=== PATIENT | female | born 1970 | race Caucasian/White ===

== ENCOUNTER 2016-09-24 05:55 | Inpatient (IN) ==
[2016-09-21 17:11] LABS: Blood Urea Nitrogen 9 mg/dl (6-20)
[2016-09-21 17:14] LABS: Appearance,Urine CLOUDY; Bilirubin,Urine NEG (NEG); Color,Urine AMBER; Glucose,Urine (UA) NEGATIVE (NEG); Leukocyte Esterase,Urine NEG /uL (NEG); Nitrate,Urine NEG (NEG); Protein,Urine NEG (NEG); Specific Gravity,Urine 1.021 (1.000-1.035); Urine Blood NEG mg/dL (<0.03); Urobilinogen,Urine NEG (NEG)
[2016-09-21 17:17] LABS: Basophils # (Auto) 0 K/mcL (0.0-0.3); Basophils % (Auto) 0.4 % (0.0-2.0); Eosinophils # (Auto) 0.2 K/mcL (0.0-0.7); Eosinophils % (Auto) 1.9 % (0.0-7.0); Granulocytes % (Auto) 68.1 % (38.0-78.0); Lymphocytes # (Auto) 2.3 K/mcL (1.5-4.8); Lymphocytes % (Auto) 23.8 % (15.5-49.0); Mean Cell Volume 91.3 fL (80.0-100.0); Mean Corpuscular HGB Conc 33.9 g/dL (31.0-36.0); Mean Corpuscular Hemoglobin 30.9 pg (26.0-34.0); Monocytes # (Auto) 0.6 K/mcL (0.1-0.9); Monocytes % (Auto) 5.8 % (1.0-12.0); Platelet Count 392 K/mcL (140-440); RBC 4.56 M/mcL (4.00-5.20); Red Cell Distribution Width 12.5 % (11.5-14.5)
[2016-09-21 17:24] LABS: HCG,Serum NEGATIVE <10.0 mIU/Ml (<10)
[2016-09-24] MEDS ORDERED: CLINDAMYCIN 900 MG in DEXTROSE 5% IN WATER 50 ML IV SCH (08:30)
[2016-09-24] MEDS ORDERED: ONDANSETRON 4 MG/2 ML VIAL IV ONE (08:55)
[2016-09-24] MEDS ORDERED: SUCCINYLCHOLINE 20 MG/ML ML IV ONE (08:55)
[2016-09-24] MEDS ORDERED: DEXAMETHASONE 10 MG/ML VIAL IV ONE (08:55)
[2016-09-24] MEDS ORDERED: ROPIVACAINE HCL/PF 30 ML VIAL IJ ONE (08:55)
[2016-09-24] MEDS ORDERED: PROPOFOL 200 MG/20 ML VIAL IV ONE (08:55)
[2016-09-24] MEDS ORDERED: LIDOCAINE HCL/PF 100 MG/5 ML SYRINGE IV ONE (08:55)
[2016-09-24] MEDS ORDERED: MIDAZOLAM 5 MG/5 ML VIAL IV ONE (08:55)
[2016-09-24] MEDS ORDERED: TRANEXAMIC ACID 1,000 MG/10 ML VIAL IV ONE ×2 (08:55→12:10)
[2016-09-24] MEDS ORDERED: METOPROLOL TARTRATE 5 MG/5 ML VIAL IV ONE (08:55)
[2016-09-24] MEDS ORDERED: PHENYLEPHRINE 10 MG/ML VIAL IV ONE (08:55)
[2016-09-24] MEDS ORDERED: fentaNYL 250 MCG/5 ML VIAL IV ONE (08:55)
[2016-09-24] MEDS ORDERED: ePHEDrine 50 MG/ML AMPUL IV ONE (08:55)
[2016-09-24] MEDS ORDERED: GENTAMICIN SULFATE 800 MG/20 ML VIAL IR ONE (10:03)
[2016-09-24] MEDS ORDERED: METOPROLOL TARTRATE 5 MG/5 ML VIAL IV PRN (11:12)
[2016-09-24] MEDS ORDERED: ePHEDrine 50 MG/ML AMPUL IV PRN (11:12)
[2016-09-24] MEDS ORDERED: diphenhydrAMINE 50 MG/ML VIAL IV PRN ×3 (11:12→18:15)
[2016-09-24] MEDS ORDERED: PROMETHAZINE 25 MG/ML VIAL IM PRN (11:12)
[2016-09-24] MEDS ORDERED: ONDANSETRON 4 MG/2 ML VIAL IV PRN ×2 (11:12→12:10)
[2016-09-24] MEDS ORDERED: HYDROmorphone 2 MG/ML SYRINGE IV PRN (11:12)
[2016-09-24] MEDS ORDERED: ATROPINE SULFATE 0.4 MG/ML VIAL IV PRN (11:12)
[2016-09-24] MEDS ORDERED: ACETAMINOPHEN 1,000 MG/100 ML BOTTLE IV ONE (11:12)
[2016-09-24] MEDS ORDERED: METHOCARBAMOL 1,000 MG/10 ML VIAL IV PRN (11:12)
[2016-09-24] MEDS ORDERED: NALOXONE HCL 0.4 MG/ML VIAL IV PRN (11:12)
[2016-09-24] MEDS ORDERED: PROMETHAZINE 25 MG/ML VIAL IV PRN (11:12)
[2016-09-24] MEDS ORDERED: BENZOCAINE/MENTHOL 1 LOZENGE PO PRN ×2 (11:12→12:10)
[2016-09-24] MEDS ORDERED: FLUMAZENIL 0.1 MG/ML ML IV PRN (11:12)
[2016-09-24] MEDS ORDERED: IPRATROPIUM/ALBUTEROL 3 ML AMPUL.NEB NEB PRN (11:12)
[2016-09-24] MEDS ORDERED: LACTATED RINGERS 1,000 ML IV SCH (11:15)
[2016-09-24] MEDS ORDERED: CLINDAMYCIN 600 MG in DEXTROSE 5% IN WATER 50 ML IV ONE (11:29)
[2016-09-24] MEDS ORDERED: BUPIVACAINE 0.5% 50 ML VIAL IJ ONE (12:06)
--- NOTE | 2016-09-24 12:08 | Brief Operative Note ---
Date of procedure: 09/24/16 Pre-op diagnosis: painful ankle fusion right Procedure: R ankle replacement Grafts/Implants: Yes (katherine LARA) Anesthesia: GETA Complications: none Surgeon: Jacob Matta Defense Attorney: Samuel Valdez Estimated blood loss (cc): 130 Specimens Removed/Pathology: none sent Condition: stable Disposition: PACU
[2016-09-24] MEDS ORDERED: POLYETHYLENE GLYCOL 3350 17 GM PACKET PO PRN (12:10)
[2016-09-24] MEDS ORDERED: FLEETS ADULT ENEMA PR PRN (12:10)
[2016-09-24] MEDS ORDERED: BISACODYL 10 MG SUPP.RECT PR PRN (12:10)
[2016-09-24] MEDS ORDERED: MAGNESIUM HYDROXIDE 30 ML ORAL.SUSP PO PRN (12:10)
[2016-09-24] MEDS ORDERED: MEPERIDINE 25 MG/ML SYRINGE IV ONE (12:33)
[2016-09-24] MEDS: fentaNYL 100 MCG/2 ML VIAL IV PRN ×4 (12:40→13:20)
[2016-09-24] MEDS: 0.9 % SODIUM CHLORIDE 1,000 ML IV SCH ×2 (12:59→16:03)
--- NOTE | 2016-09-24 13:14 | XRay Report ---
CLINICAL INFORMATION: Postop ankle prostheses COMPARISON: None. FINDINGS: Total ankle prosthesis is anatomically aligned. Single screw transfixes the medial malleolus. Cast material obscures bone detail. No osseous abnormality. IMPRESSION: Total ankle prosthesis appears anatomically aligned Interpreted and Authenticated by: Nate Mccray 09/24/16
[2016-09-24] MEDS ORDERED: KETOROLAC 30 MG/ML VIAL IV ONE (14:30)
[2016-09-24] MEDS: busPIRone 5 MG TABLET PO SCH ×2 (14:45→22:04)
[2016-09-24] MEDS: 0.9 % SODIUM CHLORIDE 10 ML SYRINGE IV SCH ×2 (14:46→22:06)
[2016-09-24] MEDS: HYDROmorphone 2 MG/ML SYRINGE IV PRN ×2 (15:24→17:00)
[2016-09-24] MEDS: GABAPENTIN 400 MG CAPSULE PO SCH ×2 (16:20→22:05)
[2016-09-24] MEDS ORDERED: diphenhydrAMINE 25 MG CAPSULE PO PRN ×2 (17:59→18:15)
[2016-09-24] MEDS: CLINDAMYCIN 600 MG in DEXTROSE 5% IN WATER 50 ML IV SCH (19:02)
[2016-09-24] MEDS: KETOROLAC 30 MG/ML VIAL IV PRN (20:26)
[2016-09-24] MEDS ORDERED: SENNOSIDES 1 TABLET PO SCH (21:00)
[2016-09-24] MEDS ORDERED: BIOTIN 1000 MCG PO SCH (21:00)
[2016-09-24] MEDS ORDERED: DULoxetine 30 MG CAPSULE PO SCH (21:00)
[2016-09-24] MEDS ORDERED: cloNIDine HCL 0.1 MG TABLET PO SCH (21:00)
[2016-09-24] MEDS: DOCUSATE SODIUM 100 MG CAPSULE PO SCH (22:02)
[2016-09-24] MEDS: ASPIRIN 325 MG ENTERIC COATED TABLET PO SCH (22:04)
[2016-09-24] MEDS: VITAMIN D3 1,000 UNIT TABLET PO SCH (22:05)
[2016-09-24] MEDS: APPLE CIDER VINEGAR PO SCH (22:06)
[2016-09-24] MEDS: oxyCODONE/APAP 10/325MG TABLET PO PRN (22:07)
[2016-09-25] MEDS: KETOROLAC 30 MG/ML VIAL IV PRN (02:01)
[2016-09-25] MEDS: oxyCODONE/APAP 10/325MG TABLET PO PRN ×4 (02:01→06:08)
[2016-09-25] MEDS: CLINDAMYCIN 600 MG in DEXTROSE 5% IN WATER 50 ML IV SCH (04:03)
[2016-09-25] MEDS: 0.9 % SODIUM CHLORIDE 10 ML SYRINGE IV SCH (06:09)
[2016-09-25] MEDS: 0.9 % SODIUM CHLORIDE 1,000 ML IV SCH (06:10)
[2016-09-25] MEDS ORDERED: LEVOTHYROXINE 50 MCG TABLET PO SCH (07:30)
[2016-09-25] MEDS: GABAPENTIN 400 MG CAPSULE PO SCH (08:11)
[2016-09-25] MEDS: ASPIRIN 325 MG ENTERIC COATED TABLET PO SCH (08:12)
[2016-09-25] MEDS: VITAMIN D3 1,000 UNIT TABLET PO SCH (08:12)
[2016-09-25] MEDS: DOCUSATE SODIUM 100 MG CAPSULE PO SCH (08:13)
[2016-09-25] MEDS: busPIRone 5 MG TABLET PO SCH (08:16)
[2016-09-25] MEDS: APPLE CIDER VINEGAR PO SCH (08:20)
[2016-09-25] MEDS ORDERED: HYDROmorphone 2 MG TABLET PO PRN (08:47)
[2016-09-25] MEDS ORDERED: VITAMIN B COMPLEX 1 CAPSULE PO SCH (09:00)
[2016-09-25] MEDS ORDERED: LOSARTAN 50 MG TABLET PO SCH (09:00)
[2016-09-25] MEDS ORDERED: TOLTERODINE 1 MG TABLET PO SCH (09:00)
[2016-09-25] MEDS ORDERED: DULoxetine 30 MG CAPSULE PO SCH (09:00)
== END 2016-09-25 13:00 | disposition home or self-care (01) | DRG 470 ==
LOC: MEDSUR 05:55
PROVIDERS: ADMIT Orthopaedic Surgery Foot and Ankle Surgery; ATTEND Orthopaedic Surgery Foot and Ankle Surgery

== ENCOUNTER 2018-08-25 06:40 | Inpatient (IN) ==
[2018-08-19 10:47] LABS: Appearance,Urine CLOUDY; Bacteria,Urine 0 /hpf (0); Bilirubin,Urine NEG (NEG); Calcium Oxalate Crystals,Urine MANY /hpf (0); Color,Urine YELLOW; Culture Indicated,Urine NO; Glucose,Urine (UA) NEGATIVE (NEG); Ketones,Urine 5/TR mg/dL (NEG); Leukocyte Esterase,Urine 25 /uL (NEG); Mucus,Urine MANY /hpf (0); Nitrate,Urine NEG (NEG); Protein,Urine 30 mg/dL (NEG); Specific Gravity,Urine 1.033 (1.000-1.035); Urine Blood NEG mg/dL (<0.03); Urine RBC 1 /hpf (0-1); Urine Squamous Epithelial Cell 11 /hpf (0-4); Urine WBC 9 /hpf (0-4); Urobilinogen,Urine NEG (NEG)
[2018-08-19 11:26] LABS: Basophils # (Auto) 0 K/mcL (0.0-0.3); Basophils % (Auto) 0.4 % (0.0-2.0); Eosinophils # (Auto) 0.3 K/mcL (0.0-0.7); Eosinophils % (Auto) 4.2 % (0.0-7.0); Granulocytes % (Auto) 54.5 % (38.0-78.0); Hematocrit 39.5 % (36.0-48.0); Hemoglobin 13.1 g/dL (12.0-15.0); Lymphocytes # (Auto) 2.4 K/mcL (1.5-4.8); Lymphocytes % (Auto) 31.1 % (15.5-49.0); Mean Cell Volume 89.5 fL (80.0-100.0); Mean Platelet Volume 9.3 fL (7.4-10.4); Monocytes # (Auto) 0.7 K/mcL (0.1-0.9); Monocytes % (Auto) 9.8 % (1.0-12.0); Platelet Count 309 K/mcL (140-440); RBC 4.41 M/mcL (4.00-5.20); WBC 7.6 K/mcL (4.5-11.0)
[2018-08-19 11:31] LABS: Blood Urea Nitrogen 23 mg/dl (6-20); Calcium 9.4 mg/dl (8.6-10.4); Carbon Dioxide 26 mmol/L (22-30); Chloride 100 mmol/L (96-108); Glomerular Filtration Rate 75; Glucose 99 mg/dL (70-105); Sodium 138 mmol/L (133-145)
[~2018-08-25 06:40] MED LIST: IPRATROPIUM/ALBUTEROL 3 ML AMPUL.NEB NEB PRN; SCOPOLAMINE 1 PATCH PATCH TOPICAL PRN; VANCOMYCIN 1,500 MG in 0.9 % SODIUM CHLORIDE 500 ML IV SCH
[2018-08-25] MEDS ORDERED: MIDAZOLAM 5 MG/5 ML VIAL IV ONE (09:20)
[2018-08-25] MEDS ORDERED: DEXAMETHASONE 10 MG/ML VIAL IV ONE (09:20)
[2018-08-25] MEDS ORDERED: TRANEXAMIC ACID 1,000 MG/10 ML VIAL IV ONE (09:20)
[2018-08-25] MEDS ORDERED: fentaNYL 250 MCG/5 ML VIAL IV ONE (09:20)
[2018-08-25] MEDS ORDERED: PROPOFOL 200 MG/20 ML VIAL IV ONE (09:20)
[2018-08-25] MEDS ORDERED: LIDOCAINE HCL/PF 100 MG/5 ML SYRINGE IV ONE (09:20)
[2018-08-25] MEDS ORDERED: IPRATROPIUM/ALBUTEROL 3 ML AMPUL.NEB NEB PRN (10:33)
[2018-08-25] MEDS ORDERED: ACETAMINOPHEN 1,000 MG/100 ML BOTTLE IV ONE (10:33)
[2018-08-25] MEDS ORDERED: HYDROmorphone 2 MG/ML VIAL IV PRN ×2 (10:33→13:31)
[2018-08-25] MEDS ORDERED: PROMETHAZINE 25 MG/ML VIAL IV PRN (10:33)
[2018-08-25] MEDS ORDERED: FLUMAZENIL 0.1 MG/ML ML IV PRN (10:33)
[2018-08-25] MEDS ORDERED: NALOXONE HCL 0.4 MG/ML VIAL IV PRN (10:33)
[2018-08-25] MEDS ORDERED: ONDANSETRON 4 MG/2 ML VIAL IV PRN ×2 (10:33→11:55)
[2018-08-25] MEDS ORDERED: LACTATED RINGERS 250 ML IV PRN (10:33)
[2018-08-25] MEDS ORDERED: MEPERIDINE 25 MG/ML SYRINGE IV PRN (10:33)
[2018-08-25] MEDS ORDERED: BENZOCAINE/MENTHOL 1 LOZENGE PO PRN ×2 (10:33→11:55)
[2018-08-25] MEDS ORDERED: diphenhydrAMINE 50 MG/ML VIAL IV PRN (10:33)
[2018-08-25] MEDS ORDERED: LACTATED RINGERS 1,000 ML IV SCH (10:45)
[2018-08-25] MEDS ORDERED: TRANEXAMIC ACID 1,000 MG/10 ML VIAL IV SCH (11:55)
[2018-08-25] MEDS ORDERED: MAGNESIUM HYDROXIDE 30 ML ORAL.SUSP PO PRN (11:55)
[2018-08-25] MEDS ORDERED: POLYETHYLENE GLYCOL 3350 17 GM PACKET PO PRN (11:55)
[2018-08-25] MEDS ORDERED: FLEETS ADULT ENEMA PR PRN (11:55)
[2018-08-25] MEDS ORDERED: BISACODYL 10 MG SUPP.RECT PR PRN (11:55)
[2018-08-25] MEDS ORDERED: 0.9 % SODIUM CHLORIDE 1,000 ML IV SCH (12:00)
[2018-08-25] MEDS ORDERED: ceFAZolin 1 GM VIAL IV SCH (12:00)
[2018-08-25] MEDS ORDERED: BUPIVACAINE 0.5% 50 ML VIAL IJ ONE (12:14)
[2018-08-25] MEDS: fentaNYL 100 MCG/2 ML VIAL IV PRN ×7 (12:15→12:40)
[2018-08-25] MEDS ORDERED: GABAPENTIN 400 MG CAPSULE PO SCH (13:00)
[2018-08-25] MEDS ORDERED: HYDROcodone/APAP 10/325MG TABLET PO PRN (13:33)
[2018-08-25] MEDS ORDERED: diphenhydrAMINE 50 MG/ML VIAL IV ONE (13:34)
[2018-08-25] MEDS ORDERED: 0.9 % SODIUM CHLORIDE 10 ML SYRINGE IV SCH ×2 (14:00→22:00)
--- NOTE | 2018-08-25 14:19 | Brief Operative Note ---
Date of procedure: 08/25/18 Pre-op diagnosis: bone spurs, lateral gutter ankle; painful total ankle replacement Post-op diagnosis: same Procedure: debridement right tibia and fibula spurs with tibial osteotomy; liner exchange right ankle Grafts/Implants: Yes (10 mm polyethylene liner) Anesthesia: TOÑITO Surgeon: Jacob Matta Customer Care Voice Consultant: Samuel Valdez Estimated blood loss (cc): 50 Tourniquet Time (Minutes): 120 Specimens Removed/Pathology: none sent Condition: stable Disposition: PACU
--- NOTE | 2018-08-25 14:37 | XRay Report ---
HISTORY: History: Linear exchange with exostectomy right ankle FINDINGS: The lower leg is encased in a plaster cast which obscures bone detail. A metal plate has been secured to the lateral border of the distal fibula using several screws. This is a new finding since the prior exam done on 09/24/16. Patient has an indwelling ankle prosthesis which remains well-positioned. There is also a screw placed through the medial malleolus into the distal shaft of the tibia. This is also chronic stable finding. There is a large spur on the plantar surface of the calcaneus. IMPRESSION: Normal postoperative changes Interpreted and Authenticated by: Jose Angel Chandler 08/25/18
--- NOTE | 2018-08-25 14:58 | Discharge Summary ---
Ortho Discharge Plan - General - Patient Instructions Diet: Regular Diet Activity: non weight bearing Dressing Care: Other (keep splint dry) - Follow Up Plan Follow Up Appointments: Jacob Matta MD [Physician] - Disposition: Home, Self-Care Prognosis: Fair Rehab Potential: Fair I certify that the patient requires SNF services: No - Orders For Discharge Prescriptions: HYDROcodone/APAP 10/325MG [Merritt 10-325Mg] 1 - 2 tab PO Q6HP PRN #40 tab PRN Reason: Pain Level 3-6
[2018-08-25] MEDS ORDERED: busPIRone 5 MG TABLET PO SCH (15:00)
[2018-08-25] MEDS ORDERED: DOCUSATE SODIUM 100 MG CAPSULE PO SCH (21:00)
[2018-08-25] MEDS ORDERED: DULoxetine 30 MG CAPSULE PO SCH (21:00)
[2018-08-25] MEDS ORDERED: BIOTIN 1000 MCG PO SCH (21:00)
[2018-08-25] MEDS ORDERED: VANCOMYCIN 1,500 MG in 0.9 % SODIUM CHLORIDE 500 ML IV ONE (21:00)
[2018-08-25] MEDS ORDERED: TOPIRAMATE 25 MG TABLET PO SCH (21:00)
[2018-08-25] MEDS ORDERED: ASPIRIN 81 MG TAB.CHEW PO SCH (21:00)
[2018-08-25] MEDS ORDERED: cloNIDine HCL 0.1 MG TABLET PO SCH (21:00)
[2018-08-25] MEDS ORDERED: SENNOSIDES 1 TABLET PO SCH (21:00)
--- NOTE | 2018-08-26 08:32 | Operative Note ---
DATE OF OPERATION: 08/25/2018 PREOPERATIVE DIAGNOSES: 1. Painful total ankle replacement. 2. Heterotopic bone lateral gutter and fibula, right ankle. OPERATION: 1. Liner exchange. 2. Debridement of the fibula and lateral gutter using a lateral fibular osteotomy. SURGEON: Jacob Matta M.D. WELFARE AIDE: Samuel Valdez PA-C. The PA's assistance was required for the safe and efficient completion of the entire case. This provider's expertise and technical skill were required throughout the case. The PA assisted with preoperative coordination, intraoperative retraction, wound closure, dressing and splint application, as well as postoperative documentation and care coordination. ANESTHESIA: General. TOURNIQUET TIME: 2 hours. ESTIMATED BLOOD LOSS: 50 mL. SUMMARY OF PROCEDURE: General anesthesia was attained. The patient's right leg was prepped and draped. A thigh-level tourniquet was put up. A lateral longitudinal incision was made over the fibula. This was taken down to the fibula. The ligaments and capsule of the ankle were opened. The peroneal tendons were identified and preserved. There was a loose piece of bone under the fibula. There was also some bone noted in the lateral gutter that could not be reached by the lateral approach. The patient had complaints of looseness of her prosthesis. Stress x-rays were not definitive for ankle instability, but the patient who had a previous ankle fusion had 50 degrees of ankle motion. The middle half of her incision was reopened. This was taken down to the EHL. The sheath of the tibialis anterior was identified as well. This was opened posteriorly. The ankle was dissected out. There was no purulence. The dissection was taken down to the joint replacement. There was no looseness of the tibial component. I freed up the polyethylene from the tibial implant using an osteotome and ultimately drilled the polyethylene and removed it with a manual handle. There was heterotopic bone laterally. This was meticulously debrided using an osteotome and rongeurs. Some of the bone was posterior to the ankle and not accessible. The fibular osteotomy was made transversely. This helped us access the posterolateral heterotopic bone and then this was removed. There was a little bit of extraarticular bone posteriorly that we did not remove, as I do not think it would interfere with her ankle joint function. The osteotomy was stabilized with a short Vijay plate using three locking screws distally and three cortical screws proximally. A trial of the liners was done, and we got better stability at 0 degrees of dorsiflexion with a 10 mm insert. We, therefore, implanted a 10 mm polyethylene using standard techniques. The wound was copiously irrigated. The two incisions were closed. A 2-0 Monocryl was used to close the subcutaneous tissue over the fibula, and the skin was closed with Allgower-Donati and simple sutures of 3-0 nylon. The ankle was closed in layers using 2-0 Monocryl for the retinaculum, and buried 2-0 Monocryl on the subcutaneous tissue, followed by simple and mattress sutures of 3-0 nylon on the skin. The incisions were injected throughout with a total of 30 mL of 0.5% Marcaine for postoperative analgesia. A sterile compressive dressing was applied, followed by a Preet boot. The sponge and needle count was correct. The patient tolerated the procedure well and was taken to the recovery room in stable condition. MERVIN:tammy Job ID: [id number] Doc ID: [id number] Jacob Matta MD
[2018-08-26] MEDS ORDERED: LOSARTAN 50 MG TABLET PO SCH (09:00)
[2018-08-26] MEDS ORDERED: SERTRALINE 50 MG TABLET PO SCH (09:00)
[2018-08-26] MEDS ORDERED: [UNRECOGNIZED DRUG - OTHER] PO SCH (09:00)
[2018-08-26] MEDS ORDERED: MELOXICAM 7.5 MG TABLET PO SCH (09:00)
== END 2018-08-25 16:20 | disposition home or self-care (01) | DRG 469 ==
LOC: MEDSUR 06:40
PROVIDERS: ADMIT Orthopaedic Surgery Foot and Ankle Surgery; ATTEND Orthopaedic Surgery Foot and Ankle Surgery